=== PATIENT | male | born 1955 | race Caucasian/White ===

== ENCOUNTER 2024-11-17 12:24 | Outpatient (CLI) | payer MEDICARE, BC | END 2024-11-17 23:59 | disposition home or self-care (01) | LOC: RAD 12:24 | PROVIDERS: ATTEND Student in an Organized Health Care Education/Training Program | DX: M47.812 Spondylosis without myelopathy or radiculopathy, cervical region (principal); M54.2 Cervicalgia | CPT/HCPCS: 72040 ==

== ENCOUNTER 2025-06-18 09:51 | Outpatient (CLI) | payer MEDICARE, BC ==
[2025-06-18 10:35] LABS: MEAN PLATELET VOLUME 8.6 FL (7.4-10.4); RED CELL DISTRIBUTION WIDTH 13.5 % (11.5-14.5)
[2025-06-18 10:36] LABS: LEUKOCYTE ESTERASE ,URINE NEGATIVE (Neg); NITRITES, URINE NEGATIVE (Neg); OCCULT BLOOD,URINE NEGATIVE (Neg)
[2025-06-18 10:43] LABS: UA COLLECTION TYPE CLN CATCH MIDSTREAM
[2025-06-18 11:08] LABS: CHOL/HDL RATIO 3.2 (0.00-4.99); CREATININE 1.15 MG/DL (0.60-1.10); LDL CHOLESTEROL 117 MG/DL (50-100); TOTAL CARBON DIOXIDE 30.2 MMOL/L (24-32); eGFR 63 ML/MIN
[2025-06-19 11:12] LABS: PSA, ULTRASENSITIVE W/O SERIAL 1.470 ng/mL (0.000-4.000); TESTOSTERONE, SERUM 617 ng/dL (264-916)
== END 2025-06-18 23:59 | disposition home or self-care (01) ==
LOC: LAB 09:51
PROVIDERS: ATTEND Nurse Practitioner Family
DX: I10 Essential (primary) hypertension (principal); R53.83 Other fatigue; R35.1 Nocturia; E78.5 Hyperlipidemia, unspecified; D75.1 Secondary polycythemia
CPT/HCPCS: 36415; 80053; 80061; 81003; 84153; 84402; 84403; 84439; 84443; 85025